=== PATIENT | female | born 2005 | race Caucasian/White ===

== ENCOUNTER 2025-01-11 15:46 | Emergency (ER) | payer BC, OTHER, SELFPAY ==
[2025-01-11 15:53] VITALS: BP 142/103
--- NOTE | 2025-01-11 16:36 | ED.GENMED ---
History of Present Illness
General
Chief Complaint: Crisis Evaluation
Source: patient
Exam Limitations: none
Time Seen by Provider: 01/11/25 16:14
Nursing documentation reviewed up to this point in time: agreed with
History of Present Illness
History of Present Illness:
pt is a 19 y/o F-->M
on testosterone
depression/anxiety
college student
here with mom
pt had inpatient stay in [facility] in july
he was feeling better then but more recently in the past few weeks he has been having intrusive self-harm thoughts and break downs where he is very depressed
he says that he will just be feeling fine and the next thing he thinks about is grabbing a kitchen knife ands tabbing himself. he has not acted on these thoughts
he also has had the thought of wishing he wouldn't wake up or that he wouldn't move out of the way of a bus if it was headed toward him
he hasn't been able to function at school lately and is anxious about that
he does have some social supports at college, a partner and some friends
he also has a therapist and a psychiatrist and he doesn't feel like he is getting the approrpiate care, but being told to take more medicationrather than have more therapy
the buspar is a new medication in the past 1.5 months and he also was recommedned to start duloxetine just a few weeks ago but he didn't
he drove home from college yesterday becuase he admitted to mom he has been struggling and she brought him here in hopes for inpatient admission.
no significant medical complaints
Past History
Past History
ED Past Medical History: GERD, HTN, Psychiatric and Other (SUSI)
Social History
Tobacco: Non-smoker
Alcohol: Occasional
Drug: None
Personal: Single
Living: with roommate
Employment: Student
Review of Systems
Review of Systems
Allergies reviewed?: Yes
All Other Systems: Not applicable
Phy Exam
Physical Exam
Physical Exam:
GENERAL: Alert , in no apparent distress
EYE: pupils equal and reactive
NECK: Supple
ENT: o/p clr, mmm.
CARDIAC: Regular rate and rhythm .
LUNGS: Clear breath sounds bilaterally, no acute respiratory distress, no wheezes/rales/rhonchi
ABDOMEN: Soft, without focal tenderness, no r/g, no cvat, normal bowel sounds
NEUROLOGICAL: Alert and oriented, no focal neuro deficits
SKIN: Warm and dry, skin intact. Hirsutism
MUSCULOSKELETAL: No edema, well perfused. neg gonsalo's sign
PSYCH: Normal and appropriate interaction.
Course
Orders/Labs/Results
Orders:
Orders
01/11/25 15:48
1:1 Observation - Suicide/ Violent Behavior As Directed
Crisis Consult Urgent
Reason for Consult: si
01/11/25 16:44
Test Result ONCE
01/11/25 17:12
Complete Blood Count/With Diff Urgent
Comprehensive Metabolic Panel Urgent
HCG, Serum Qualitative Screen Urgent
Urine Drug Abuse Screen Urgent
Date Specimen was Collected: 01/11/25
Time Specimen was Collected: 16:59
Abnormal Lab Results
01/11/25
17:12
MCH 31.4 H pg
(27.0-31.0)
Absolute Monos (auto) 0.7 H 10^3/uL
(0.1-0.6)
ALT 36 H U/L
(0-35)
01/11/25 17:12
01/11/25 17:12
Vital Signs
Initial and Last Documented VS:
Initial Vital Signs
Temp Pulse Resp BP Pulse Ox
36.8 C 69 20 142/103 98
01/11/25 15:53 01/11/25 15:53 01/11/25 15:53 01/11/25 15:53 01/11/25 15:53
Last Documented Vital Signs
Temp Pulse Resp BP Pulse Ox
36.8 C 69 20 142/103 98
01/11/25 15:53 01/11/25 15:53 01/11/25 15:53 01/11/25 15:53 01/11/25 15:53
MDM/Problems Addressed
Differential Diagnosis Includes:
depression, SI
MDM/Problems Addressed:
19 y/o F TO M
here with depression/SI
more passive thoughts
picking at his skin
feeling hopeless
requests help
told her mom that he wanted to come home to be admitted inpatient
doesn't feel like her meds are helping
pt is no significant medical complaints
on testosterone for gender;p not planning on surgery
screening labs sent; appreciate mild BP elevation, on antihypertensives
awaiting crisis consult
2000 - seen by crisis; bed at [facility]; 201
ED Attending Note
-
Portions of this chart may have been created with voice recognition software.� Occasional wrong word or��sound alike� substitutions may have occurred due to the inherent limitations of voice recognition software.
Discharge Plan
Departure
Discharge Problem:
Suicidal ideations
Instructions: Depression, Adult (DC)
Referrals:
Maria Guardado, DO [Family Provider] -
Activity Restrictions/Additional Instructions:
you have a bed at [facility] for your depression symptoms
good luck with your treatment.
Interventions
Interventions:
*Risk Screen - Suicide Last Done: 01/11/25 15:46
*Neglect/Abuse Screening Last Done: 01/11/25 15:53
ED-Psychological Assessment Last Done: 01/11/25 16:55
Discharge Date and Time
Print Language: UKRAINIAN
[2025-01-11 17:32] LABS: % Basophils 0.6 % (0-2); % Eosinophils 3.5 % (0-6); % Immature Granulocytes 0.3 % (0-0.5); % Lymphocytes 35.7 % (20.5-51.1); % Monocytes 9.1 % (1.7-9.3); % Neutrophils 50.8 % (42.2-75.2); Absolute Eosinophils 0.3 10^3/uL (0-0.7); Absolute Lymphocytes 2.6 10^3/uL (1.2-3.4); Absolute Monocytes 0.7 10^3/uL (0.1-0.6); Absolute Neutrophils 3.7 10^3/uL (1.4-6.5); Hematocrit 42.7 % (37.0-47.0); Hemoglobin 14.8 g/dL (12.0-16.0); Mean Corp Hgb Conc. 34.7 g/dL (33.0-37.0); Mean Corpuscular Hgb 31.4 pg (27.0-31.0); Mean Corpuscular Volume 90.7 fL (81.0-99.0); Mean Platelet Volume 9.9 fL (7.4-10.4); Nucleated Red Blood Cells % 0 %; Platelet Count 249 10^3/uL (130-400); Red Blood Cell Count 4.71 10^6/uL (4.20-5.40); White Blood Cell Count 7.2 10^3/uL (4.8-10.8)
[2025-01-11 17:41] LABS: HCG, Serum Qualitative Screen Negative
[2025-01-11 17:43] LABS: Amphetamines Negative (Negative); Barbiturates Negative (Negative); Benzodiazepines Negative (Negative); Buprenorphine Negative (Negative); Cocaine Negative (Negative); Marijuana Negative (Negative); Methadone Negative (Negative); Methamphetamines Negative (Negative); Opiates Negative (Negative); Phencyclidine Negative (Negative); Tricyclic Antidepressants Negative (Negative)
[2025-01-11 17:45] LABS: ALT (SGPT) 36 U/L (0-35); AST (SGOT) 32 U/L (14-36); Alkaline Phosphatase 98 U/L (38-126); Blood Urea Nitrogen 16 mg/dl (7-17); Calcium 9.7 mg/dl (8.4-10.2); Carbon Dioxide 29 mmol/L (22-30); Chloride 98 mmol/L (98-107); Glucose 86 mg/dl (70-99); Potassium 4.2 mmol/L (3.5-5.1); Sodium 136 mmol/L (135-145); Total Bilirubin 0.6 mg/dl (0.2-1.3); Total Protein 8.1 g/dl (6.3-8.2); eGFR > 60.00
[2025-01-11 21:54] VITALS: BP 127/81
--- NOTE | 2025-01-11 23:00 | EDRN ---
Assumed care of pt. at this time, pt. cooperative, denies active SI but does endorse passive SI. Security at bedside, pt. in crisis area, is safety hold. Spoke w/ ED attending, does not feel pt. requires additional sitter other than security.
[2025-01-12 09:14] VITALS: BP 132/95
== END 2025-01-12 09:17 ==
LOC: EMR 15:46
PROVIDERS: Physician Assistant; EMERGENCY PHYSICIAN Emergency Medicine; FAMILY PHYSICIAN Family Medicine
DX: F32.A Depression, unspecified (principal); R45.851 Suicidal ideations; I10 Essential (primary) hypertension; G47.33 Obstructive sleep apnea (adult) (pediatric); Z79.890 Hormone replacement therapy
CPT/HCPCS: 99285; 80053; 80306; 84703; 85025